=== PATIENT | male | born 1970 | race Caucasian/White ===

== ENCOUNTER 2017-01-08 07:35 | Day surgery (SDC) | payer OTHER ==
[~2017-01-08] VITALS: Ht 203.2 cm; Wt 149.7 kg
[~2017-01-08 07:35] MED LIST: 0.9% Sodium Chloride 1,000 ML IV SCH; Sodium Chloride LOK Flush 10 mL Syringe IV PRN; fentaNYL-PF 50 mCg/mL 2 mL Inj IVPUSH PRN
[2017-01-08] MEDS ORDERED: ESOM20CA28 PO (08:03)
[2017-01-08] MEDS ORDERED: TELM80TA PO (08:03)
[2017-01-08] MEDS ORDERED: ZLP10T PO (08:03)
[2017-01-08] MEDS ORDERED: SIMV20TA4 PO (08:03)
[2017-01-08] MEDS ORDERED: [UNRECOGNIZED DRUG - OTHER] (08:03)
[2017-01-08 08:07] VITALS: BP 129/80; PULSE 78; RESP 14; O2SAT 98
[2017-01-08 08:41] VITALS: BP 137/82; PULSE 75; RESP 14; O2SAT 95
[2017-01-08 08:54] VITALS: BP 135/76; PULSE 73; RESP 12; O2SAT 94
[2017-01-08 09:02] VITALS: BP 129/84; PULSE 72; RESP 12; O2SAT 94
--- NOTE | 2017-01-08 09:07 | ENDO ---
[address] [address] ENDOSCOPY PROCEDURE PATIENT: ELIZABETH PORTER : 1970 MR#: [id number] ADMIT: 01/08/2017 JOB ID: [id number] DATE: 01/08/2017 PROCEDURE: Esophagogastroduodenoscopy. INDICATION: Gastroesophageal reflux. The patient's ASA classification is 2. Mallampati score is 2. MEDICATIONS: 1. Versed 6 mg. 2. Fentanyl 100 mcg. INSTRUMENT USED: GIF H 180 J PROCEDURE DETAILS: After informed consent was obtained, the patient was brought into the GI suite, where he was placed on oxygen via nasal cannula and monitored with continuous pulse oximeter, telemetry and blood pressure monitoring. A time-out was performed. Then, he was placed in the left lateral decubitus position and medications were administered for sedation. A bite block was placed. The standard EGD scope was then inserted through the bite block and advanced under direct visualization to the second portion of the duodenum without difficulty. FINDINGS: 1. Normal-appearing duodenal bulb, first and second portion. 2. Normal-appearing pylorus, antrum and gastric body. 3. Retroflexed views in the gastric body revealed a normal-appearing cardia and fundus. 4. Multiple random biopsies were obtained throughout the antrum and body of the stomach. 5. The top of the gastric folds coincided with the squamocolumnar junction at 49 cm. There were several tongues of salmon-colored mucosa extending proximally to 46 cm. The remainder of the esophagus otherwise unremarkable. Multiple random biopsies were obtained in the distal esophagus to rule out Serna's. 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 RECOMMENDATIONS: 1. Take PPI 30 minutes to 1 hour before breakfast and dinner. 2. Weight loss was encouraged. 3. Reflux precautions. 4. Followup in GI clinic. 5. Subsequent repeat EGD may be necessary pending esophageal biopsy results. COMPLICATIONS: None. ESTIMATED BLOOD LOSS: Less than 5 mL.
--- NOTE | 2017-01-09 13:53 | PATH ---
SURGICAL PATHOLOGY Attending Physician:Cinthia Paris CASE STATUS: Signed Out PATIENT NAME: ELIZABETH PORTER PID: [id number] : 1970 DATE COLLECTED:01/08/2017 17:59 SPECIMEN: 1: Gastric, Biopsy 2: Esophagus, Biopsy CLINICAL HISTORY: 1). GASTRIC BIOPSY (RULE OUT H. PYLORI) 2). DISTAL ESOPHAGUS FINAL DIAGNOSIS: 1.GASTRIC BODY BIOPSY: MUCOSAL HYPEREMIA WITHOUT ASSOCIATED SIGNIFICANT INFLAMMATION INVOLVING FUNDIC MUCOSA. Negative for evidence of Helicobacter on H&E stain. Negative for intestinal metaplasia. Negative for dysplasia and malignancy. 2.DISTAL ESOPHAGUS BIOPSY: SQUAMOUS MUCOSA AND GASTRIC CARDIA-TYPE MUCOSA POSITIVE FOR SPECIALIZED METAPLASIA OF NEGRO' S-TYPE ESOPHAGUS. FRAGMENTS OF GASTRIC OXYNTIC-TYPE MUCOSA PRESENT. Negative for dysplasia and malignancy. Negative for squamous intraepithelial eosinophils. ICD10 K22.70 GROSS DESCRIPTION: Received are two formalin-filled containers, both labeled with the patient' s name: 1. Received in formalin, labeled with the patient' s name and "gastric polyp", is one fragment of bailey, soft tissue measuring 0.2 x 0.1 x 0.1 cm. The fragment is totally submitted in cassette 1A. 2. Received in formalin, labeled with the patient' s name and "distal esophagus", are multiple fragments of bailey, soft tissue ranging in size from 0.1 x 0.1 x 0.1 cm to 0.2 x 0.1 x 0.1 cm. All fragments are totally submitted in cassette 2A. ([id number]) MICRO DESCRIPTION: See diagnosis. ICD-9 CODES: CPT CODES: 1: 63542 2: 46163 Electronically Signed Out Sunny Khan MD [facility] [address], [place] [address] Technical component performed at [facility], [facility] [address], [address]
== END 2017-01-08 23:59 | disposition home or self-care (01) ==
LOC: END 07:35
PROVIDERS: ATTEND Internal Medicine Gastroenterology
DX: K22.70 Barrett's esophagus without dysplasia (principal); K21.9 Gastro-esophageal reflux disease without esophagitis; R05 Cough; I10 Essential (primary) hypertension; E78.5 Hyperlipidemia, unspecified; E66.3 Overweight; Z68.36 Body mass index [BMI] 36.0-36.9, adult
CPT/HCPCS: 43239; 88305; G0500; J2250; J3010; J7030